=== PATIENT | female | born 1985 | race Caucasian/White ===

== ENCOUNTER 2018-08-18 17:29 | Emergency (ER) | payer BC ==
[~2018-08-18] VITALS: Ht 154.9 cm; Wt 73.0 kg
[2018-08-18 17:32] VITALS: Ht 154.9 cm; Wt 73.0 kg
[2018-08-18 19:54] VITALS: BP 128/67
== END 2018-08-18 19:54 | disposition home or self-care (01) ==
LOC: ED 17:29
DX: O99.73 Diseases of the skin and subcutaneous tissue complicating the puerperium (principal); R21 Rash and other nonspecific skin eruption; O87.2 Hemorrhoids in the puerperium; K64.4 Residual hemorrhoidal skin tags; Z98.51 Tubal ligation status
CPT/HCPCS: J2270; Q0162